=== PATIENT | female | born 1985 | race Caucasian/White ===

== ENCOUNTER 2024-04-11 13:17 | Emergency (ER) | payer SELFPAY ==
[2024-04-11 13:20] VITALS: BP 125/87; PULSE 99; RESP 20; TEMP 37.9; O2SAT 96; BMI 26.7
[2024-04-11 13:27] VITALS: O2SAT 96
--- NOTE | 2024-04-11 13:41 | EKG12_ITS ---
Test Reason : COUGH/CONGESTION Blood Pressure : */* mmHG Vent. Rate : 89 BPM Atrial Rate : 89 BPM P-R Int : 162 ms QRS Dur : 82 ms QT Int : 342 ms P-R-T Axes : 68 50 39 degrees QTcB Int : 416 ms Normal sinus rhythm Normal ECG Confirmed by IMER YUN, STEPHANIE ([id number]), managing editor MICH KIRK ([id number]) on 04/12/2024 12:38:21 PM Referred By: Confirmed By: STEPHANIE WILLAMS MD
--- NOTE | 2024-04-11 13:42 | RAD_ITS ---
STUDY: X-RAY CHEST REASON FOR EXAM: Female, 38 years old. One week history of cough and shortness of breath. TECHNIQUE: PA and lateral views of the chest. COMPARISON: None. FINDINGS: EKG electrodes are seen. Right lower lobe infiltration. There is no demonstrated pleural abnormality. Normal size heart. Normal mediastinum and marcos. Normal visualized pulmonary arteries. Normal visualized aortic arch and descending thoracic aorta. Normal visualized thoracic spine. Normal visualized ribs, clavicles, and shoulders. There is no demonstrated abnormality of the visualized soft tissue structures of the upper abdomen. RAD/Chest PA and Lateral IMPRESSION: Right lower lobe infiltration. Electronically Signed: Yeison Dan MD at 14:47 EST ,
--- NOTE | 2024-04-11 13:42 | EX.ED.DYSGE1 ---
HPI History of Present Illness Chief Complaint: Shortness of Breath Narrative Narrative: Patient is a 30-year-old female with no known significant past medical history who presents to the emergency department chief complaint of cough, shortness of breath, diffuse bodyaches and low oxygen saturation at home. She states that she checked her oxygen level and it was noted be 89% and her heart rate was elevated she states that she talked with her brother who is a ER physician in [place] and he advised her to go to the emergency department to be evaluated. Patient states that her daughter was sick a couple weeks ago but denies any other recent sick contacts. Patient denies any history of blood clots and denies any recent travel history. Patient states that on Wednesday of this past week she started not feeling well and then by Wednesday she had diffuse bodyaches fevers chills and not feeling well. Patient did note that she has diarrhea. PFSH PFSH Medical History no medical history Home Medications ?Medication ?Instructions ?Recorded ?Last Taken ?Type doxycycline hyclate 100 mg capsule 100 mg PO BID 7 days #14 caps 04/11/24 Unknown Rx Allergy/AdvReac Type Severity Reaction Status Date / Time No Known Allergies Allergy Verified 04/11/24 13:19 Social History Smoking Status: Current every day smoker tobacco type: e-cigarettes ROS ROS ED ROS Narrative Constitutional: Complains of chills denies any fevers, lightheadedness or dizziness Eyes: Denies change in vision double vision blurry vision Cardiovascular: Denies chest pain or palpitations Respiratory: Complains of cough and shortness of breath as noted above denies any wheezing Abdomen: Denies any abdominal pain nausea vomit diarrhea : Denies any urinary symptoms Neurological: Denies any numbness, weakness, tingling Musculoskeletal: Complains of diffuse bodyaches denies any back pain Skin: Denies rashes or lesions EXAM Physical Exam Narrative Exam Narrative: General: Patient lying in bed resting comfortably reading a book did not appear to be in acute distress Head: Atraumatic, normocephalic Eyes: PERRL bilateral, EOMI bilateral, no conjunctival injection noted Neck: Soft, supple, trachea midline Cardiovascular: Regular rate and rhythm no murmurs gallops rubs noted Respiratory: Clear to auscultation bilaterally Abdomen: Soft, nondistended, nontender to palpation, bowel sounds present x 4 Extremities: +5/5 strength noted in the bilateral lower extremities, no pedal edema no exam, radial pulses +2/4 in the bilateral upper extremities Neurological: Patient follow commands knew that she was at [facility] years 2023 Skin: Warm, dry, intact no rashes or lesions noted Const Vital Signs: 04/11/24 13:20 04/11/24 13:27 04/11/24 14:32 Temperature 100.3 F H Temperature Source Oral Pulse Rate 99 Respiratory Rate 20 H Respiratory Effort Short of Breath Respiratory Depth Deep Respiratory Pattern Tachypnea Blood Pressure 125/87 H Blood Pressure Mean 99 Pulse Ox 96 Oxygen Delivery Method Room Air Room Air Room Air MDM MDM MDM Narrative Medical decision making narrative: Patient is a 38-year-old female who presents to the emergency department chief complaint of cough, shortness of breath, headache and diffuse bodyaches. Patient will have a workup performed here on the differential diagnosis includes but not limited to upper respiratory infection secondary viral etiology, pneumonia. Once workup is obtained reviewed she will be reevaluated. Patient will be given Tylenol for her headache/fever Patient CBC reviewed and showed no evidence leukocytosis white blood count normal at 6, hemoglobin stable 11.3, platelet count normal at 188. Patient sodium normal 134, potassium normal 3.4, creatinine normal at 0.62. Patient's chest x-ray reviewed by myself and by radiology which was consistent with a right lower lobe infiltrate consistent with pneumonia. Patient's EKG reviewed and independently turbid by myself showed sinus rhythm with a rate of 89 bpm. I did discuss results with the patient we will place her on doxycycline prescription sent to pharmacy. She was ambulated here in the emergency department and her oxygen remained normal no evidence of hypoxia. Patient was advised to follow-up with her primary care physician outpatient setting. She was advised to rotate Tylenol and ibuprofen [id number] for her fever control. She is agreeable this plan all question concerns answered she was discharged home in stable condition. Lab Data Labs: Laboratory Results - last 24 hr 04/11/24 14:09 WBC 6.0 RBC 3.59 L Hgb 11.3 L Hct 32.6 L MCV 90.8 MCH 31.5 MCHC 34.7 RDW Std Deviation 39.9 RDW Coeff of Kenan 12.0 Plt Count 188 MPV 9.7 Immature Gran % (Auto) 0.500 Neut % (Auto) 78.7 H Lymph % (Auto) 10.1 L [place] % (Auto) 9.4 Eos % (Auto) 0.8 Baso % (Auto) 0.5 Absolute Neuts (auto) 4.8 Absolute Lymphs (auto) 0.61 L Nucleated RBC % 0 Sodium 134 L Potassium 3.5 Chloride 100 Carbon Dioxide 28.0 Anion Gap 6 BUN 6 L Creatinine 0.62 Estim Creat Clear Calc 105.64 Est GFR (MDRD) Af Amer 138 Est GFR (MDRD) Non-Af 114 BUN/Creatinine Ratio 9.6 L Glucose 100 Calcium 9.2 Radiography Diagnostic Testing: Clinical Impression(s) from Imaging Studies Chest X-Ray 04/11/24 13:42 IMPRESSION: Right lower lobe infiltration. Electronically Signed: Yeison Dan MD at 14:47 EST Reading Location ID and State: [facility] / [place] , Service support , Discharge Plan Triage Chief Complaint: Shortness of Breath ED Provider: Viral Sharma Dx/Rx/DC Orders Clinical Impression: Right lower lobe pneumonia Prescriptions: New doxycycline hyclate 100 mg capsule 100 mg PO BID 7 Days Qty: 14 0RF Primary Care Provider: Care Physician,No Primary Referrals: Care Physician,No Primary [Primary Care Provider] - Celsa Davis [facility], DO [[facility]] - Activity Restrictions/Additional Instructions: Follow-up with your primary care physician in the outpatient setting. Take antibiotics as prescribed, this was sent to your pharmacy. Rotate Tylenol and ibuprofen [id number] for your fever control. Return with worsening symptoms or any other concerns. Your chest x-ray here today was consistent with pneumonia Print Language: [place] Disposition Disposition: Home, Self Care
[2024-04-11] MEDS: Acetaminophen 500 MG Tablet 1000 MG PO (14:11)
[2024-04-11] MEDS: 0.9% Normal Saline (1000mL) 1,000 ML 999 ML IV (14:11)
[2024-04-11 14:25] LABS: Absolute Lymphocyte Count 0.61 X10^3/uL (0.83-4.51); Absolute Neutrophil Count 4.8 X10^3/uL (2.0-7.7); Basophil# 0.03 X10^3/uL; Basophil% 0.5 % (0-1); Eosinophil# 0.05 X10^3/uL; Eosinophils% 0.8 % (0-5); Hematocrit 32.6 % (37-47); Hemoglobin 11.3 g/dL (12.0-15.0); Lymphocyte # 0.61 X10^3/ul (0.83-4.51); Lymphocyte % 10.1 % (19-41); Mean Corp Hgb Conc 34.7 g/dL (32-36); Mean Corpuscular Hgb 31.5 pg (27.0-32.0); Mean Corpuscular Volume 90.8 fL (81-99); Mean Platelet Vol. 9.7 fl (6.2-12.0); Monocyte# 0.57 X10^3/uL; Monocyte% 9.4 % (0-10); NRBC Flagged by Analyzer 0 % (0-5); Neutrophil # 4.75 X10^3/uL (2.7-7.7); Neutrophil % 78.7 % (47-70); Platelet Count 188 K/mm3 (150-450); RBC Distribution Width SD 39.9 fl (35.1-43.9); Red Blood Count 3.59 M/mm3 (4.2-5.4)
[2024-04-11 14:31] LABS: Anion Gap 6 (5-15); BUN 6 mg/dL (7-18); BUN/Creat Ratio 9.6 RATIO (10-20); Calcium,Total 9.2 mg/dL (8.5-10.1); Chloride 100 mmol/L (98-107); Creatinine, Serum 0.62 mg/dL (0.55-1.02); EST Glomerular Filtration Rate 114 mL/min (>60); Est Glom Filt Rate - Afr Amer 138 mL/min (>60); Estimated Creatinine Clearance 105.64 ml/min; Glucose 100 mg/dL (74-106); Potassium 3.5 mmol/L (3.5-5.1); Sodium Level 134 mmol/L (136-145)
[2024-04-11 14:59] VITALS: O2SAT 97
[2024-04-11 15:17] VITALS: BP 110/68; PULSE 87; RESP 23; TEMP 36.8; O2SAT 97
[2024-04-11] MEDS: Azithromycin 250 MG Tablet 500 MG PO (15:25)
== END 2024-04-11 15:26 | disposition home or self-care (01) ==
PROVIDERS: Emergency Provider Emergency Medicine; Visit Provider Emergency Medicine
DX: R06.02 Shortness of breath (principal); J18.9 Pneumonia, unspecified organism; F17.290 Nicotine dependence, other tobacco product, uncomplicated
CPT/HCPCS: 71046; 80048; 85025; 87631; 93005; 96360; 99284; A4216